=== PATIENT | male | born 1965 ===

== ENCOUNTER 2016-10-04 07:08 | Inpatient (IN) | payer OTHER ==
[2016-10-04] VITALS (15 sets, daily range): BP systolic 104–146; BP diastolic 55–88
[~2016-10-04] VITALS: Ht 170.2 cm; Wt 86.2 kg
[~2016-10-04 07:08] MED LIST: ceFAZolin sod 2 GM in D5W 110 ML IVPB ONE
--- NOTE | 2016-10-04 07:41 | Pre-Procedure Note/Attestation ---
Pre-Procedure Note/Attestation Complete Prior to Procedure Planned Procedure: not applicable Procedure Narrative: Artificial disc replacement of C67 Indications for Procedure Pre-Operative Diagnosis: C67 hnp Attestation I attest that I discussed the nature of the procedure; its benefits; risks and complications; and alternatives (and the risks and benefits of such alternatives ), prior to the procedure, with the patient (or the patient's legal financial foundations representative). I attest that, if there was a reasonable possibility of needing a blood transfusion, the patient (or the patient's legal financial foundations representative) was given the [facility] standardized written summary, pursuant to the Ilan Robin Blood Safety Act ([place] Health and Safety Code # 1645, as amended). I attest that I re-evaluated the patient just prior to the surgery and that there has been no change in the patient's H&P, except as documented below: MYRANDA HOLLOWAY October 04, 2016 07:41
--- NOTE | 2016-10-04 07:42 | Brief Operative Note ---
Immediate Post Operative Note Operative Note Chief Complaint: Intractable neck pain and radiculopathy Pre-op Diagnosis: C67 hnp Procedure: Artificial disc replacement of C67 Post-op Diagnosis: same as pre-op Findings: consistent w/pre-op dx studies Surgeon: Selma Audiovisual Tech: Syed Anesthesiologist: Boni Anesthesia: general Specimen: none Complications: none Condition: stable Estimated Blood Loss: none Implant(s) used?: Yes - Prodisc C sz 5 MYRANDA HOLLOWAY October 04, 2016 07:42
[2016-10-04] MEDS ORDERED: Norco 7.5mg/325mg tab ORAL PRN ×2 (07:45→10:30)
[2016-10-04] MEDS ORDERED: Metoclopramide 10mg/2ml Inj IVP PRN ×2 (07:45→10:30)
[2016-10-04] MEDS ORDERED: Milk of Magnesia 30ml Ud ORAL PRN (07:45)
[2016-10-04] MEDS ORDERED: HYDROmorphone 1mg/ml Carpuject IVP PRN (07:45)
[2016-10-04] MEDS ORDERED: HYDROmorphone 1mg/ml Carpuject SUBQ PRN (07:45)
[2016-10-04] MEDS ORDERED: Norco 5mg/325mg tab ORAL PRN ×2 (07:45→10:30)
[2016-10-04] MEDS ORDERED: Naloxone 0.4mg/ml Inj IVP PRN (07:45)
[2016-10-04] MEDS ORDERED: NORCO 5-325 TA1 EAC1 ORAL (08:20)
[2016-10-04] MEDS ORDERED: Vancomycin 1gm inj IVPB ONE (09:15)
[2016-10-04] MEDS ORDERED: Bupivacaine w/Epi 0.5% 30ml Vial INJ ONE (09:15)
[2016-10-04] MEDS ORDERED: Thrombin 5000 units TOPIC ONE (09:15)
[2016-10-04] MEDS ORDERED: Bacitracin 50000 Units Vial ONE (09:15)
[2016-10-04] MEDS ORDERED: Dexamethasone 4mg/ml vial ONE (09:30)
[2016-10-04] MEDS ORDERED: Lidocaine 1% MPF 10mg/ml 5ml ONE (09:30)
[2016-10-04] MEDS ORDERED: Neostigmine 1mg/ml 10ml Inj ONE (09:30)
[2016-10-04] MEDS ORDERED: Sterile Water Irrig 1000ml IRRIG ONE (09:30)
[2016-10-04] MEDS ORDERED: Glycopyrrolate 0.2mg/ml 1ml Vial ONE (09:30)
[2016-10-04] MEDS ORDERED: Nimbex 2mg/ml Inj 10ML IVP ONE (09:30)
[2016-10-04] MEDS ORDERED: Lidocaine 1% Plain 30 ml INJ ONE (09:30)
[2016-10-04] MEDS ORDERED: NS Irrig 1000ml ONE (09:30)
[2016-10-04] MEDS ORDERED: Midazolam 2mg/2ml Inj ONE (09:30)
[2016-10-04] MEDS ORDERED: LR 1000ml ONE (09:30)
[2016-10-04] MEDS ORDERED: fentaNYL 250mcg/5ml ONE (09:30)
--- NOTE | 2016-10-04 10:19 | Anethesia Preoperative Eval ---
Anesthesia Pre-op PMH/ROS General Date of Evaluation: October 04, 2016 Time of Evaluation: 09:23 Anesthesiologist: Sheryl ASA Score: ASA 2 Mallampati Score Class I : Soft palate, uvula, fauces, pillars visible Class II: Soft palate, uvula, fauces visible Class III: Soft palate, base of uvula visible Class IV: Only hard plate visible Mallampati Classification: Class II Surgeon: Selma Diagnosis: Neck Pain Surgical Procedure: ACDF C6-7 Anesthesia History: none Family History: no anesthesia problems Allergies: Coded Allergies: No Known Allergies (Unverified , 10/04/16) Medications: see eMAR Past Medical History Other: obesity - BMI 30 PSxH Narrative: Umbilical, Testicular Hernia Repair, Lumbar Spine SX Anesthesia Pre-op Phys. Exam Physician Exam Last Vital Signs Date Time Temp Pulse Resp B/P Pulse Ox O2 Delivery O2 Flow Rate FiO2 10/04/16 08:13 98.1 49 20 132/67 100 Room Air Constitutional: NAD Neurologic: CN 2-12 intact Cardiovascular: RRR Respiratory: CTA Gastrointestinal: S/NT/ND Airway Exam Mallampati Score: Class II MO: full ROM: limited Teeth: intact Anesthesia Pre-op A/P Risk Assessment & Plan Assessment: ASA 2 Status Change Before Surgery: No Pre-Antibiotics Dru Grams Ancef IV Given Within 1 Hr of Incision: Yes Time Given: 09:36 Juan Antonio Saucedo MD October 04, 2016 10:19
[2016-10-04] MEDS ORDERED: LR 1000ml 1,000 ML IVLG SCH (10:20)
--- NOTE | 2016-10-04 10:27 | Immediate Post-Op Evaluation ---
Immediate Post-Op Evalulation Immediate Post-Op Evalulation Procedure: ACDF C6-7 Date of Evaluation: October 04, 2016 Time of Evaluation: 11:43 IV Fluids: 900 LR Blood Products: 0 Estimated Blood Loss: 25 Urinary Output: 250 Blood Pressure Systolic: 146 Blood Pressure Diastolic: 88 Pulse Rate: 69 Respiratory Rate: 16 O2 Sat by Pulse Oximetry: 100 Temperature (Fahrenheit): 96.9 Pain Score (1-10): 3 Nausea: No Vomiting: No Complications 0 Patient Status: awake, reacts, patent, extubated, none Hydration Status: adequate Dru Grams Ancef IV Given Within 1 Hr of Incision: Yes Time Given: 09:36 Juan Antonio Saucedo MD October 04, 2016 10:27
--- NOTE | 2016-10-04 10:28 | 48 Hour Post Anesthesia Eval ---
Post Anesthesia Evaluation Procedure: ACDF C6-7 Date of Evaluation: October 04, 2016 Time of Evaluation: 13:53 Blood Pressure Systolic: 132 0: 78 Pulse Rate: 61 Respiratory Rate: 18 Temperature (Fahrenheit): 98.4 O2 Sat by Pulse Oximetry: 99 Airway: patent Nausea: No Vomiting: No Pain Intensity: 3 Hydration Status: adequate Cardiopulmonary Status: Stable Mental Status/LOC: patient returned to baseline Follow-up Care/Observations: 0 Post-Anesthesia Complications: 0 Follow-up care needed: N/A Juan Antonio Saucedo MD October 04, 2016 10:27
[2016-10-04] MEDS ORDERED: Ketorolac 60mg Inj IV PRN (10:30)
[2016-10-04] MEDS ORDERED: Atropine Inj 1mg/10ml Syr IV PRN (10:30)
[2016-10-04] MEDS ORDERED: Oxycodone/Acetaminophen 5-325 ORAL PRN (10:30)
[2016-10-04] MEDS ORDERED: DiphenhydrAMINE 50mg/ml Inj IVP PRN (10:30)
[2016-10-04] MEDS ORDERED: Midazolam 2mg/2ml Inj IVP PRN (10:30)
[2016-10-04] MEDS ORDERED: LORazepam Inj 2mg/ml 1ml IV PRN (10:30)
[2016-10-04] MEDS ORDERED: fentaNYL 100 mcg/2 mL IV PRN (10:30)
[2016-10-04] MEDS ORDERED: Meperidine 25mg/0.5ml Inj IV PRN (10:30)
[2016-10-04] MEDS ORDERED: Ketorolac 30mg Inj IV PRN (10:30)
[2016-10-04] MEDS ORDERED: Acetaminophen (Non formulary) 100 ML IV ONE (10:45)
[2016-10-04] MEDS ORDERED: Propofol 10mg/ml 100ml btl IV ONE (11:30)
[2016-10-04] MEDS: Hydromorphone 0.5mg/0.5ml inj IVP PRN ×2 (12:00→12:38)
--- NOTE | 2016-10-04 14:11 | Diagnostic Imaging Report ---
Indication: Neck Pain Findings: Fluoroscopic views of the cervical spine were obtained. Localization images followed by a discectomy and placement of a disc prosthetic at C6-7 noted. Impression: Intraoperative imaging
[2016-10-04] MEDS: Dexamethasone 4mg/ml vial IVP SCH ×2 (15:08→20:53)
[2016-10-04] MEDS: NS w/KCl 20mEq 1,000 ML IV SCH (16:03)
[2016-10-04] MEDS: Docusate 100mg cap ORAL SCH (17:03)
[2016-10-04] MEDS: Norco 7.5mg/325mg tab ORAL PRN (17:04)
[2016-10-04] MEDS: ceFAZolin sod 1 GM in D5W 55 ML IV SCH (17:04)
[2016-10-05] VITALS: BP 112/55
[2016-10-05] MEDS: NS w/KCl 20mEq 1,000 ML IV SCH ×2 (01:04→04:59)
[2016-10-05] MEDS: ceFAZolin sod 1 GM in D5W 55 ML IV SCH ×2 (01:04→10:56)
[2016-10-05] MEDS: Norco 7.5mg/325mg tab ORAL PRN ×2 (01:43→11:12)
[2016-10-05 04:00] VITALS: BP 117/43
[2016-10-05] MEDS: Dexamethasone 4mg/ml vial IVP SCH ×2 (04:59→10:56)
[2016-10-05 08:00] VITALS: BP 109/59
[2016-10-05] MEDS: Docusate 100mg cap ORAL SCH (10:56)
[2016-10-05 12:00] VITALS: BP 135/71
[2016-10-05] MEDS ORDERED: Tubing IV Secondary IV ONE (13:26)
--- NOTE | 2016-10-05 21:31 | Operative Note - Dictated ---
DATE OF OPERATION: 10/04/2016 SURGEON: Marcos Hahn MD, orthopedic spine surgeon. MAINTENANCE MILLWRIGHT: Rao Lynch M.D. PREOPERATIVE DIAGNOSES: 1. Intractable neck pain. 2. Radiculopathy. 3. Herniation, C6-C7. 4. Neural foraminal stenosis C6-C7. 5. Stenosis. POSTOPERATIVE DIAGNOSES: 1. Intractable neck pain. 2. Radiculopathy. 3. Herniation, C6-C7. 4. Neural foraminal stenosis C6-C7. 5. Stenosis PROCEDURE PERFORMED: 1. Anterior cervical discectomy and artificial disc replacement of C6-C7 using a ProDisc C size 5. 2. Use of intraoperative microscope. 3. Motor evoked potential monitoring. 4. Somatosensory evoked potential monitoring. 5. Supervision and interpretation of fluoroscopy. COMPLICATIONS: None. ANESTHESIA: General. ESTIMATED BLOOD LOSS: Less than 100 mL. INDICATIONS FOR SURGERY: This patient is a 50-year-old male, who has a history of diagnoses as listed above. As of result of this, the patient sustained intractable neck pain, radiculopathy, herniation C6-C7, neural foraminal stenosis C6-C7, and stenosis. We tried a course of conservative management but despite this course there was still a significant component of persistent, recalcitrant neck pain and arm pain. The MRI demonstrated significant neural foraminal compromise secondary to disc herniations at C6-C7. We had a long discussion with Sigifredo regarding the risks and benefits of surgery. Our discussion included but was not limited to nonoperative management, chiropractic management, another epidural steroid injection as well definitive management in the form of surgery. We recommended an anterior cervical discectomy and artificial disc replacement of C6-C7 using a Prodisc C size 5 height as final definitive management. We reviewed the risks and benefits of surgery with the patient. Our discussion included a comprehensive review of the clinical issues and the nature of the clinical decision. We reviewed the alternatives, including doing nothing. The patient elected to proceed accordingly with anterior cervical discectomy and artificial disc replacement of C6-C7 using a Prodisc C size 5 height. We had a long discussion regarding the risks, alternatives and benefits of surgery. Our description of the risks included a discussion in person as well as a signed consent which detailed all pertinent risks from the procedure itself. Briefly, our discussion included but was not limited to infection, bleeding, pseudarthrosis, spinal cord injury, neurovascular injury, dural tear, CSF leak, neuropathy, paralysis, permanent weakness/drop foot/drop arm, paresthesias, blindness, palsy and weakness. The patient understood there may be a need for a revision surgery or additional procedures. Approach-related complications including dysphonia, dysphagia, blindness, permanent vocal cord and neural injury, hematoma, swallowing and breathing difficulty. Medical complications were reviewed including liver, kidney, shock, cardiopulmonary failure, anesthesia complications including , swelling, damage to the musculature, larynx/voice injury or loss, esophagus/throat, trachea, blood vessels and muscles/muscular sprain and lungs/pneumothorax during this surgical procedure; injury to deeper structures may be temporary or permanent. After this review of risks, the patient understood these and elected to proceed. A written and verbal consent was given. We discussed the pros and cons of all the alternatives. We discussed the uncertainties associated with the decision. Afterwards I assessed the patient's understanding and explored their preferences. All questions were answered and no guarantees were given. Medical clearance was obtained prior to surgery. INTRAOPERATIVE FINDINGS: A broad based disc herniation which was found posterior to a tear/rent in the posterior longitudinal ligament at C6-C7 causing a considerable amount of neural foraminal stenosis with significant encroachment on the neural foramina and spinal cord. DESCRIPTION OF PROCEDURE: Under the benefit of general endotracheal anesthesia and with the assistance of the entire operative team, the patient was moved from the [facility] onto the operative table in the supine position. The head was secured and carefully positioned appropriately. Bilateral arms were secured with GelPads and foam and all bony prominences were padded. For the bilateral lower extremities SCD and RAYMOND hose were placed for DVT prophylaxis. A surgical timeout was called which corroborated our planned procedure of Anterior cervical discectomy and artificial disc replacement of C6-C7 using a Prodisc C size 5 height. Preoperative antibiotics were administered within 30 minutes of the incision for antibiotic prophylaxis. Using lateral fluoroscopic radiography, the operative levels were delineated. Next the wound was prepped and draped with Chlorhexidine and sterile drapes. An incision was based on lateral fluoroscopy and we centered our incision at the C6-C7 interspace and next using a standard [employer] anterior based approach the incision was taken down through the skin and subcutaneous tissues until the vertebral bodies and their corresponding disc spaces were visualized. A needle was placed into the interspace to confirm placement of the operative interspace and we performed the remainder of procedure under microscopic visualization. Next, using a bipolar and Bovie cautery to ensure meticulous hemostasis, the longus colli was mobilized bilaterally and retractors were placed deep to the longus colli bilaterally to address retraction. Next we turned our attention to the radical anterior discectomy. This was initially performed at C6-C7. First by using a 15 blade scalpel followed by narrow pituitaries and a Microsect 5-B curette was used to denude the endplate of all cartilaginous tissue. Next using a [employer] AM8 drillbit the partial vertebrectomy was performed in a [id number] and layer by layer fashion, and ultimately the posterior uncinate joints bilaterally and posterior osteophytic lips and margins causing central and lateral impingement were carefully denuded until visualization of the posterior longitudinal ligament was possible. An endplate preparation was performed in the exact same fashion using an intervertebral conveyor operator, sequential distraction was obtained throughout the disc space. We saw a tear/rent in the PLL and this was carefully mobilized and dissected using a Microsect 1-B curet until we visualized a broad-based disc herniation with compression of the spinal cord as well as neural foramina left more than right. This neural foraminal compression was carefully resected using a Kerrison-1 and Kerrison-2 rongeurs until complete decompression of the spinal cord was visualized and complete decompression of the neural foramina and nerve root therein as well as the axilla and lateral margin of the nerve root was visualized and subsequently completely decompressed. The family was notified at one hour intervals throughout the procedure to provide for consistent updates. We next turned our attention towards trialing our implant within the disc space. We initially tried size 5 and the Prodisc Cervical spacer fit well in regards to depth and width. This implant was opened and prepared. Next under direct visualization, I confirmed excellent fit in respect to the anterior and posterior vertebral bodies, the uncinate joints and in regards to toggle. Once satisfied with this placement on serial AP and lateral fluoroscopy I turned my attention towards cutting our sarah. These were cut in the bones using a reciprocating drill and afterwards all free fragments of bone were irrigated. Next FloSeal was placed into the interspace and the implant was inserted using fluoroscopic guidance. Next, the Synthes Prodisc C size 5 ADR was then carefully advanced and secured into the intervertebral space under direct visualization and with supervision of AP and lateral fluoroscopic views. The patient tolerated the procedure well. The patient was carefully extubated after the conclusion of surgery. We discussed the findings of the surgery with the family upon completion of the case. At this point the patient was transferred to the spine floor for further observation. Marcos Hahn M.D. DR: SALVADOR JOB#: [id number] CC:
--- NOTE | 2016-10-05 21:31 | Discharge Summary ---
DATE OF ADMISSION: 10/04/2016 DATE OF DISCHARGE: 10/05/2016 SURGEON: Marcos Hahn M.D. PROCEDURE PERFORMED DURING ADMISSION: Cervical C6-C7 artificial disk replacement. REASON FOR ADMISSION: Herniated nucleus pulposus. DISCHARGE PHYSICAL EXAM: 1. Patient was ambulating with and without the assistance of physical therapy. 2. Prior to discharge home incision was clean and dry with minimal swelling. 3. Follows commands. 4. Alert and oriented. 5. Yip discontinued, voiding. 6. Incentive spirometer at bedside. 7. IVF hep locked. MOTOR: Demonstrates expected postoperative bulk and tone. Moves biceps, triceps, and deltoid musculature on command. Moves hip flexors, quadriceps, tibialis anterior, EHL, gastrocsoleus musculature on command as well. TREATMENT RENDERED: 1. Daily nursing care. 2. Physical Therapy. 3. Occupational Therapy. 4. Intravenous medications. 5. Oral medications. 6. Daily postoperative examinations by Spine surgery team. CONDITION OF PATIENT ON DISCHARGE: The condition on discharge is stable for discharge to home. DISCHARGE INSTRUCTIONS: Our specific instructions relating to physical activity, medications diet and follow-up care are detailed in our standard operative folder and were given to this patient prior to surgery. We will however summarize these briefly as stated below. Regarding physical activity we would like the patient to limit their flexion, extension and rotation. We also require a limitation on their bending lifting and twisting. All medication has been called in prior to surgery to their pharmacy of choice. They can resume their regular diet once tolerated. We would like them to shower and limit soaking the wound in a tub/Jacuzzi/the ocean for a period of one month or until the incision is completely healed. We will have them follow up in our office in three weeks time for their regularly scheduled appointment. They understand to call our office tomorrow to schedule the time for their three week followup appointment. The patient will notify us should they experience any increase in the severity of pain, redness/swelling/ or drainage from their incision. Marcos Hahn M.D. DR: SALVADOR JOB#: [id number] CC:
== END 2016-10-05 13:27 | disposition home or self-care (01) | DRG 518 ==
LOC: SDSOVERFLO 07:08 → 3E 13:45
PROC: F01 Physical Rehabilitation and Diagnostic Audiology, Rehabilitation, Motor and/or Nerve Function Assessment (ICD-10-PCS; principal; 2016-10-04 11:30)
PROC: 0RR30JZ Replacement of Cervical Vertebral Disc with Synthetic Substitute, Open Approach (ICD-10-PCS; principal; 2016-10-04 11:30)
PROC: 0RB30ZZ Excision of Cervical Vertebral Disc, Open Approach (ICD-10-PCS; principal; 2016-10-04 11:30)
DX: M50.123 Cervical disc disorder at C6-C7 level with radiculopathy (principal); M48.02 Spinal stenosis, cervical region
CPT/HCPCS: 36415; 72040; 76000; 86850; 86900; 86901; 87081; J2250; J2405; J2710

== ENCOUNTER 2018-08-05 05:13 | Inpatient (IN) | payer OTHER ==
[~2018-08-05] VITALS: Ht 170.2 cm; Wt 86.2 kg
[2018-08-05] VITALS (11 sets, daily range): BP systolic 110–140; BP diastolic 64–84
[~2018-08-05 05:13] MED LIST changes: +NORCO 5-325 TA1 EAC1 ORAL; -ceFAZolin sod 2 GM in D5W 110 ML IVPB ONE
[2018-08-05] MEDS ORDERED: LR 1000ml 1,000 ML IVLG SCH (06:26)
--- NOTE | 2018-08-05 06:28 | Anethesia Preoperative Eval ---
Anesthesia Pre-op PMH/ROS General Date of Evaluation: Aug 05, 2018 Time of Evaluation: 07:01 Anesthesiologist: Sheryl ASA Score: ASA 2 Mallampati Score Class I : Soft palate, uvula, fauces, pillars visible Class II: Soft palate, uvula, fauces visible Class III: Soft palate, base of uvula visible Class IV: Only hard plate visible Mallampati Classification: Class II Surgeon: Selma Diagnosis: Back Pain Surgical Procedure: ALIF L4-5, PSF L4-5 Anesthesia History: none Family History: no anesthesia problems Allergies: Coded Allergies: No Known Allergies (Unverified , 10/04/16) Medications: see eMAR Patient NPO?: Yes NPO Date: Aug 04, 2018 NPO Time: 2358 Past Medical History Other: obesity - BMI 31 PSxH Narrative: Umbilical, Testicular Hernia Repair, Cervical SX Anesthesia Pre-op Phys. Exam Physician Exam Last Vital Signs Date Time Temp Pulse Resp B/P (MAP) Pulse Ox O2 Delivery O2 Flow Rate FiO2 08/05/18 06:15 Room Air 08/05/18 06:05 97.5 46 18 110/67 (81) 99 Constitutional: NAD Neurologic: CN 2-12 intact Cardiovascular: RRR Respiratory: CTA Gastrointestinal: S/NT/ND Airway Exam Mallampati Score: Class II MO: full ROM: limited Teeth: intact Anesthesia Pre-op A/P Risk Assessment & Plan Assessment: ASA 2 Plan: GA, SED, GlideScope Go Pre-Antibiotics Dru Grams Ancef IV Given Within 1 Hr of Incision: Yes Time Given: 07:16 Juan Antonio Saucedo MD Aug 05, 2018 06:28
[2018-08-05] MEDS ORDERED: Hydromorphone 0.5mg/0.5ml inj IVP PRN (06:30)
[2018-08-05] MEDS ORDERED: Metoclopramide 10mg/2ml Inj IVP PRN ×2 (06:30→07:15)
[2018-08-05] MEDS ORDERED: Labetalol 5mg/ml 20ml vial IV PRN (06:30)
[2018-08-05] MEDS ORDERED: Ketorolac 30mg Inj IV PRN ×2 (06:30)
[2018-08-05] MEDS ORDERED: oxyCODONE HCL/Acetaminophen 5/325mg ORAL PRN (06:30)
[2018-08-05] MEDS ORDERED: HYDROcodone/Acetamin 7.5/325 tab ORAL PRN ×2 (06:30→07:15)
[2018-08-05] MEDS ORDERED: Atropine Sulfate 0.4mg/ml inj IVP PRN (06:30)
[2018-08-05] MEDS ORDERED: Midazolam 2mg/2ml Inj IVP PRN (06:30)
[2018-08-05] MEDS ORDERED: LORazepam Inj 2mg/ml 1ml IV PRN (06:30)
[2018-08-05] MEDS ORDERED: Acetaminophen (Non formulary) 100 ML IV ONE (06:30)
[2018-08-05] MEDS ORDERED: DiphenhydrAMINE 50mg/ml Inj IVP PRN (06:30)
[2018-08-05] MEDS ORDERED: fentaNYL 100 mcg/2 mL IV PRN (06:30)
[2018-08-05] MEDS ORDERED: Meperidine 50mg/ml Inj(FOR RIGORS ONLY) IVP PRN (06:30)
[2018-08-05] MEDS ORDERED: HYDROcodone/Acetamin 5/325 tab ORAL PRN ×2 (06:30→07:15)
[2018-08-05] MEDS ORDERED: Zemuron 50mg/5ml Inj IV ONE (06:33)
[2018-08-05] MEDS ORDERED: Heparin 5000 units/ml inj ONE (06:37)
[2018-08-05] MEDS ORDERED: Gelfoam Size TOPIC ONE (06:38)
[2018-08-05] MEDS ORDERED: Thrombin 5000 units TOPIC ONE ×5 (06:38→10:56)
[2018-08-05] MEDS ORDERED: Ropivacaine 5mg/ml Vial 30ml INJ ONE (06:38)
[2018-08-05] MEDS ORDERED: Lidocaine 1% MPF 10mg/ml 5ml ONE (06:47)
[2018-08-05] MEDS ORDERED: Sodium Chloride 10ml vial INJ ONE (06:47)
[2018-08-05] MEDS ORDERED: Lidocaine 1% Plain 30 ml INJ ONE ×5 (06:47→14:49)
[2018-08-05] MEDS ORDERED: Dexamethasone 4mg/ml vial ONE (06:47)
[2018-08-05] MEDS ORDERED: fentaNYL 100 mcg/2 mL IV ONE ×5 (06:55→15:26)
[2018-08-05] MEDS ORDERED: NS Irrig 1000ml ONE (07:00)
[2018-08-05] MEDS ORDERED: LR 1000ml ONE (07:00)
[2018-08-05] MEDS ORDERED: Propofol 1,000mg/ 100ml btl IV ONE (07:00)
[2018-08-05] MEDS ORDERED: Sterile Water Irrig 1000ml IRRIG ONE (07:00)
[2018-08-05] MEDS ORDERED: ceFAZolin sod 2 GM in D5W 110 ML IVPB ONE (07:00)
[2018-08-05] MEDS ORDERED: NS Irrig 1000ml IRRIG ONE (07:06)
--- NOTE | 2018-08-05 07:06 | Immediate Post-Op Evaluation ---
Immediate Post-Op Evalulation Immediate Post-Op Evalulation Procedure: ALIF L4-5, PSF L4-5 Date of Evaluation: Aug 05, 2018 Time of Evaluation: 13:13 IV Fluids: 1100 LR Blood Products: 0 Estimated Blood Loss: 250 Urinary Output: 200 Blood Pressure Systolic: 140 Blood Pressure Diastolic: 84 Pulse Rate: 71 Respiratory Rate: 16 O2 Sat by Pulse Oximetry: 100 Temperature (Fahrenheit): 97.5 Pain Score (1-10): 2 Nausea: No Vomiting: No Complications 0 Patient Status: awake, reacts, patent, extubated, none Hydration Status: adequate Dru Grams Ancef IV Given Within 1 Hr of Incision: Yes Time Given: 07:16 Juan Antonio Saucedo MD Aug 05, 2018 07:06
--- NOTE | 2018-08-05 07:11 | Pre-Procedure Note/Attestation ---
Pre-Procedure Note/Attestation Complete Prior to Procedure Planned Procedure: not applicable Procedure Narrative: Stage 1 Anterior Lumbar Fusion of L5S1 with bone morphogenetic protein and allograft bone Stage 2 Posterior hanley flores/lawson laminectomy pedicle screw fixation and posterolateral fusion of L45 Attestation I attest that I discussed the nature of the procedure; its benefits; risks and complications; and alternatives (and the risks and benefits of such alternatives ), prior to the procedure, with the patient (or the patient's legal customer field representative). I attest that, if there was a reasonable possibility of needing a blood transfusion, the patient (or the patient's legal customer field representative) was given the [place] [facility] standardized written summary, pursuant to the Ilan Converse Blood Safety Act ([place] Health and Safety Code # 1645, as amended). I attest that I re-evaluated the patient just prior to the surgery and that there has been no change in the patient's H&P, except as documented below: Marcos Hahn MD Aug 05, 2018 07:11
--- NOTE | 2018-08-05 07:13 | Brief Operative Note ---
Immediate Post Operative Note Operative Note Chief Complaint: Back pain and radiculopathy Pre-op Diagnosis: L45 recurrent hnp following trauma, prior lumbar surgery 2008 Dr Perez Procedure: Stage 1 Anterior Lumbar Fusion of L45 with bone morphogenetic protein and allograft bone Stage 2 Posterior hanley flores/lawson laminectomy pedicle screw fixation and posterolateral fusion of L45 Post-op Diagnosis: same as pre-op Findings: consistent w/pre-op dx studies Surgeon: Selma Debrander: Cuong Anesthesia: general Specimen: none Complications: none Condition: stable Fluids: IVF Estimated Blood Loss: minimal Drains: none Implant(s) used?: Yes - Nuvasive Brigade sz 14, screws 25mmx4....synthes pedicle screws 4x 45 Marcos Hahn MD Aug 05, 2018 07:13
[2018-08-05] MEDS ORDERED: Morphine Sulfate 2mg/ml Inj(IV/IM USE ONLY) IV PRN (07:15)
[2018-08-05] MEDS ORDERED: Milk of Magnesia 30ml Ud ORAL PRN (07:15)
[2018-08-05] MEDS ORDERED: Chloraseptic Spray 20mL Bottle ORAL PRN (07:15)
[2018-08-05] MEDS ORDERED: Bacitracin 50000 Units Vial ONE (07:15)
[2018-08-05] MEDS ORDERED: Naloxone 0.4mg/ml Inj IVP PRN (07:15)
[2018-08-05] MEDS ORDERED: Morphine Sulfate 4mg/ml Inj (IV USE ONLY) IV PRN ×2 (07:15)
[2018-08-05] MEDS ORDERED: HYDROmorphone 1mg/ml Carpuject IVP PRN (07:15)
[2018-08-05] MEDS ORDERED: Glycopyrrolate 0.2mg/ml 1ml Vial ONE ×5 (07:28→15:28)
[2018-08-05] MEDS ORDERED: Neosporin Oint Ud Pkt TOPIC ONE (07:57)
[2018-08-05] MEDS ORDERED: Bacitracin Oint 15gm Tube TOPIC ONE (07:57)
[2018-08-05] MEDS ORDERED: Vancomycin 1gm vial IVPB ONE ×2 (09:37→12:19)
--- NOTE | 2018-08-05 09:56 | Pre-Procedure Note/Attestation ---
Pre-Procedure Note/Attestation Complete Prior to Procedure Planned Procedure: not applicable Procedure Narrative: Stage 1 Anterior Lumbar Fusion of L45 with bone morphogenetic protein and allograft bone Stage 2 Posterior hanley flores/lawson laminectomy pedicle screw fixation and posterolateral fusion of L45 Indications for Procedure Pre-Operative Diagnosis: L45 recurrent hnp following trauma, prior lumbar surgery 2008 Dr Perez Attestation I attest that I discussed the nature of the procedure; its benefits; risks and complications; and alternatives (and the risks and benefits of such alternatives ), prior to the procedure, with the patient (or the patient's legal fraud representative). I attest that, if there was a reasonable possibility of needing a blood transfusion, the patient (or the patient's legal fraud representative) was given the [place] [facility] standardized written summary, pursuant to the Ilan Robin Blood Safety Act ([place] Health and Safety Code # 1645, as amended). I attest that I re-evaluated the patient just prior to the surgery and that there has been no change in the patient's H&P, except as documented below: Marcos Hahn MD Aug 05, 2018 09:56
[2018-08-05] MEDS ORDERED: Neostigmine 1mg/ml 10ml Inj ONE (11:28)
--- NOTE | 2018-08-05 14:15 | NUR ---
NURSE NOTES:RECEIVED PATIENT FR.PACU BY KEO S/P ALIF/PLIF L4-5 WITH ALLOGRAFT,A/OX4,MOVING ALL EXTREMITIES, NO C/O TINGLING/NUMBNESS,PAIN LEVEL 3/10(TOLERABLE)WITH O2 AT 2LITERS N/C,IV SITE PATENT,MORGAN CATH DRAINING WELL,BACK INCISION WITH D/B INTACT,ICE PACK ON,ABDOMINAL DRSNG REINFORCED BY PACU NURSE(RITESH ALLISON )WITH 4/4/TEGADERM CLEAN/DRY/INTACT.PLAN OF CARE DISCUSSED.FAMILY AT BEDSIDE .
[2018-08-05] MEDS: NS w/KCl 20mEq 1,000 ML IV SCH (16:15)
[2018-08-05] MEDS: ceFAZolin sod 1 GM in D5W 55 ML IV SCH ×2 (16:15→23:42)
--- NOTE | 2018-08-05 16:23 | Diagnostic Imaging Report ---
INDICATION: Pain, intraoperative TECHNIQUE: Intraoperative imaging Fluoroscopy time: 95.7 seconds Total dose: 0.13169 mGym2 Total number of images: 5 COMPARISON: None FINDINGS: Intraoperative images demonstrate surgical tool projected at the anterior aspect of the L4-5 disc. Subsequent images document anterior surgical fusion at L4-5 with placement of a disc spacer, subsequently placement of posterior fusion rods IMPRESSION: Intraoperative imaging, as described
[2018-08-05] MEDS: Docusate 100mg cap ORAL SCH (16:53)
--- NOTE | 2018-08-05 17:30 | General Progress Note ---
Assessment/Plan Assessment/Plan L45 recurrent hnp following trauma, prior lumbar surgery 2008 Dr Perez Stage 1 Anterior Lumbar Fusion of L45 with bone morphogenetic protein and allograft bone Stage 2 Posterior hanley flores/lawson laminectomy pedicle screw fixation and posterolateral fusion of L45 lumbar disc disease PLAN 1. incentive spirometry 2. SCD 3. PT evaluation and therapy 4. Hydration 5. Pain management 6. discharge once stable with outpatient follow up Subjective Allergies: Coded Allergies: No Known Allergies (Unverified , 10/04/16) Subjective post op care noted Objective Last 24 Hour Vital Signs Date Time Temp Pulse Resp B/P (MAP) Pulse Ox O2 Delivery O2 Flow Rate FiO2 08/05/18 16:00 97.5 60 18 128/70 (89) 98 08/05/18 15:25 97.9 63 18 115/64 (81) 98 08/05/18 14:15 Nasal Cannula 2.0 08/05/18 14:15 97.8 08/05/18 14:06 97.8 66 17 120/64 100 Nasal Cannula 3 08/05/18 14:00 70 18 121/65 100 Nasal Cannula 3 08/05/18 13:46 76 16 119/74 100 Nasal Cannula 3 08/05/18 13:30 64 14 127/73 100 Nasal Cannula 3 08/05/18 13:20 66 13 132/77 100 Simple Mask 6 08/05/18 13:13 73 17 123/72 99 Simple Mask 6 08/05/18 13:08 80 20 133/83 99 Simple Mask 6 08/05/18 13:03 97.5 72 12 140/84 99 Simple Mask 6 08/05/18 13:02 71 16 100 08/05/18 06:15 Room Air 08/05/18 06:05 97.5 46 18 110/67 (81) 99 Intake and Output 08/04/18 08/05/18 19:00 07:00 # Voids 1 Height (Feet): 5 Height (Inches): 7.00 Weight (Pounds): 190 Objective WDWN NAD clear breath sounds bilaterally without rhonchi or wheeze [id number] without MRG NABS nontender no HSM no CCE nonfocal Nolberto Gaffney MD Aug 05, 2018 17:30
[2018-08-05] MEDS: Dexamethasone 4mg/ml vial IVP SCH (17:40)
--- NOTE | 2018-08-05 18:00 | Consultation ---
DATE OF CONSULTATION: 08/05/2018 VASCULAR SURGERY CONSULTATION CONSULTING PHYSICIAN: Caleb Hutchins M.D. HISTORY OF PRESENT ILLNESS: The patient is a 52-year-old male who was admitted to undergo anterior lumbar interbody fusion of L4-L5 as determined by his spine surgeon, Dr. Marcos Hahn. Prior to today, the patient would typically have received my separate informed consent form and other documents mailed to his home the patient does not recall receiving such a packet. However, as my usual protocol, the patient was seen in the preoperative holding area where he was given a separate informed consent form, which introduced me and explained my role in the approach for the anterior lumbar spine surgery. It was also translated in Khmer as well. It also outlined the possible risks and complications including, but not limited to hemorrhage, need for blood transfusions, retrograde ejaculation, wound infection, bowel or ureter injury, arterial or venous injury or thrombosis, and the remote chance of , etc. The patient read the form and all questions were answered. He was shown the site of the incision. He had palpable bilateral posterior tibial pulses. He was 5 feet 7 inches tall, weighing approximately 190 pounds giving him a BMI of 30. His hematocrit was 44 with a platelet count of 225,000. His INR was 1.09 with a PTT of 25 seconds. That consent was signed with a nurse witness and signature as well and then placed into the chart. He fully understood and wished to proceed. There were no contraindications and we would proceed with the proposed operation. Caleb Hutchins M.D. DR: PATRICE JOB#: [id number] CC:
--- NOTE | 2018-08-05 18:30 | Operative Note - Dictated ---
DATE OF OPERATION: 08/05/2018 OPERATIONS: 1. Muscle sparing anterior abdominal retroperitoneal approach for anterior lumbar interbody fusion. 2. Mobilization of the left iliac artery and aorta. 3. Mobilization of the left iliac vein and ligation of iliolumbar vein. 4. Plastic closure repair of abdominal wound. CO-SURGEONS: 1. Caleb Hutchins M.D. 2. Marcos Hahn M.D. ANESTHESIA: General. PREOPERATIVE DIAGNOSIS: Herniated disc, L4-L5. POSTOPERATIVE DIAGNOSIS: Herniated disc, L4-L5. PROCEDURE IN DETAIL: Prior to surgery, the patient would typically have received my separate informed consent form, but the patient does not recall receiving such a packet with other documents. As my usual protocol, the patient was seen in the preoperative holding area where he was given the separate informed consent form, which was translated in Filipino as well. This form introduces me and explains my role in the approach for the anterior lumbar spine surgery. It also outlines the possible risks and complications, including, but not limited to hemorrhage, need for blood transfusion, wound infection, retrograde ejaculation, bowel or ureter injury, arterial or venous injury or thrombosis, and the remote chance of , etc. The patient read the form and all questions were answered. He was shown the site of the incision. He had palpable bilateral posterior tibial pulses. That consent was signed with a nurse witnessed and signature as well and then placed into the chart. He fully understood and wished to proceed. A preoperative vascular surgery consultation report was dictated. The patient was taken into the operating room and placed in the supine position. Using an endotracheal tube, he was placed under general anesthesia without difficulty. His abdomen was prepped and draped in the usual sterile manner. An appropriate time-out was obtained. A transverse incision was made in the left abdomen at the level of the umbilicus and carried down through the subcutaneous tissues down to the rectus fascia. Hemostasis was achieved using electrocautery. The rectus fascia was incised transversely and elevated off the anterior surface of the muscle for a distance of approximately 4 cm both caudad and cephalad. This would allow for retraction of the rectus muscle laterally later in the case noted to obtain direct anterior-posterior approach to the anterior surface of the spine. The inferior epigastric vessels were identified and preserved. The posterior rectus fascia was then incised and carefully from the peritoneum. Laterally, the retroperitoneal space was entered down to the left psoas muscle. The left ureter was identified and protected as it was mobilized with the peritoneum more medially until the left iliac artery was identified. Deep self-retaining retractors such as the [place] and [place] were utilized to hold the abdominal wall and peritoneal contents in place while further dissection was carried out. The left iliac artery is now mobilized for its entire length up to its junction with the aorta. Deeper dissection revealed the common iliac vein, which was mobilized down to its iliolumbar branch. This branch was ligated using #0 silk with hemoclips placed and transected. Any other venous tributaries in the area were controlled with hemoclips and transected. Segmental vessels lying along the anterior surface of the spine were taken between hemoclips and transected. This would allow for mobilization of the iliac vessels both anteriorly and to the right to allow proper visualization of the anterior surface of the spine. Continued blunt dissection was carried out to preserve the sympathetic chains laterally and then utilized to expose the anterior surface of the multiple vertebral bodies and intervening disc space. Several retractor blades were now placed in all quadrants with the rectus muscle now retracted laterally, which allowed exposure and direct anterior-posterior approach to the anterior surface of the spine. A needle was inserted into the appropriate disc space and an x-ray was taken to verify the exposure. The spine surgeon then proceeded to perform diskectomy and fusion, which be dictated in a separate report by the spine surgeon, Dr. Hahn. Antibiotic irrigation had been carried out. Vancomycin powder was left in the wound. The retractor blades were removed. The integrity of the iliac vessels were then checked to make sure that there was no tear or thrombosis of the vein and that there was adequate flow through the artery or no evidence of spasm or thrombosis. A further check for hemostasis was made and the integrity of the ureter was verified. The peritoneum was allowed to return to its anatomical location and then the posterior sheath approximated using continuous running suture of 2-0 Vicryl. The anterior rectus sheath was approximated using #1 Vicryl. The subcutaneous tissues were irrigated using dilute Betadine solution as well as antibiotic solution. Hemostasis noted to be achieved. Some vancomycin powder was left in the wound. Plastic closure repair of the abdominal wound was continued using 2-0 Vicryl followed by skin approximation using continuous subcuticular suture of 3-0 Monocryl. Steri-Strips were applied. Dry sterile gauze OpSite dressings were applied. The sponge, pad, needle, and instrument counts reported as correct. Estimated blood loss was less than 50 mL. There were no complications during this part of the procedure. At completion of this part of the procedure, the patient had maintenance of palpable bilateral posterior tibial pulses and the pulse oximeter registered 100% on the left foot. The patient will remain in the operating room undergo posterior instrumentation by the spine surgeon. Caleb Hutchins M.D. DR: ANTOINE JOB#: [id number] CC:
--- NOTE | 2018-08-05 19:18 | NUR ---
NURSE NOTES: Report taken from KEEGAN Moe. Patient awake and in bed, A&Ox4, family at bedside. Surgical sites post/ant c/d/i, continue to monitor. No further skin issues. IV site c/d/i and patent, running NS + KCl @ 100ml/hr. O2 at bedside, not currently using, but understands how to use if necessary. Tolerated liquid diet well, advance to regular. Antibiotics to be given tonight. Bed in lowest position, call light within reach.
--- NOTE | 2018-08-05 19:18 | NUR ---
HAND-OFF: Report given to LOGAN ALLISON.PATIENT STABLE.
--- NOTE | 2018-08-05 19:20 | NUR ---
NURSE NOTES: Report taken from KEEGAN Moe. Patient awake and in bed, A&Ox4, family at bed side. Abdominal dressing, reinforced prior to arrival, is c/d/i. Abdomen is slightly distended, continue to monitor. Posterior incision covered with dermabone, intact. IV site c/d/i and patent, running cycle of antibiotics. Yip patent and flowing yellow urine. Bed in lowest position, call light within reach.
[2018-08-06] MEDS: Dexamethasone 4mg/ml vial IVP SCH ×3 (00:37→12:36)
[2018-08-06] MEDS: NS w/KCl 20mEq 1,000 ML IV SCH ×2 (00:38→11:00)
--- NOTE | 2018-08-06 01:30 | Operative Note - Dictated ---
DATE OF OPERATION: 08/05/2018 Stage 1 of 2. SURGEON: Marcos Hahn M.D., Orthopaedic Spine Surgeon. EXPOSURE SURGEON: Caleb Hutchins M.D. ANESTHESIA: General endotracheal anesthesia. PREOPERATIVE DIAGNOSES: 1. Intractable back pain. 2. Intractable leg pain. 3. Worsening radiculopathy. 4. Weakness. 5. Herniated nucleus pulposus, L4-L5 herniation. 6. Neural foraminal stenosis, L4-L5 herniation. POSTOPERATIVE DIAGNOSES: 1. Intractable back pain. 2. Intractable leg pain. 3. Worsening radiculopathy. 4. Weakness. 5. Herniated nucleus pulposus, L4-L5 herniation. 6. Neural foraminal stenosis, L4-L5 herniation. PROCEDURES PERFORMED: 1. Radical anterior lumbar intervertebral L4-L5 discectomy. 2. Anterior lumbar interbody fusion using NuVasive Brigade PEEK cage size #14 mm 8 degrees, and medium BMP with 5 mL of allograft Freestone bone. 3. Anterior lumbar plating and fixation at L4-L5 using #4 screws of 25 mm length. 4. Anterior retroperitoneal exposure. 5. Supervision and interpretation of intraoperative fluoroscopy. 6. Supervision and interpretation of somatosensory-evoked potential and free-running EMG monitoring. COMPLICATIONS: None. INDICATIONS FOR THE PROCEDURE: The patient is a 52-year-old male who presents for intractable back pain and radiculopathy which is well documented in our clinical chart and records. We had a long discussion with Sigifredo regarding definitive surgical treatment options. We had a long discussion with the patient regarding the risks, alternatives, and benefits of procedure. Our description of the risks included a discussion in person as well as a signed consent which detailed all pertinent risks and the procedure itself. Briefly, our discussion included but was not limited to infection, bleeding, pseudarthrosis, spinal cord injury, neurovascular injury, dural tear, CSF leak, neuropathy, paralysis, permanent weakness/drop foot, paresthesias, blindness, palsy, and weakness. The patient understood there may be a need for revision surgery or additional procedures. Approach-related complications including dysphonia, dysphagia, blindness, permanent vocal cord and neural injury, hematoma, swallowing and breathing difficulty; medical complications including liver, kidney, shock, and cardiopulmonary failure; anesthesia complications including , swelling, damage to the musculature, larynx , esophagus, trachea, blood vessels and muscles, and lungs during this surgical procedure. Injury to deeper structures may be temporary or permanent. The patient understood these and elected to proceed. A written and verbal consent was given. We discussed the pros and cons of all the alternatives. We discussed the uncertainties associated with the decision. Afterwards, I assessed the patients understanding and explored their preferences. All questions were answered and no guarantees were given. Medical clearance was obtained prior to surgery. OPERATIVE FINDINGS: A broad-based disc herniation at L4-L5 was encountered, which encroached on the thecal sac and neural foraminal elements therein. This L4-L5 disc was acute in nature and not calcified. It was mobile and free-floating and resected easily. There was also neural foraminal stenosis at L4-L5. DESCRIPTION OF PROCEDURE: Under the benefit of general endotracheal anesthesia and with the assistance of the entire operative team, the patient was moved from the [place] onto the operative table in the supine position on a radiolucent frame. The head was secured and positioned appropriately. Bilateral arms were secured with Gel Pads and foam and all bony prominences were padded. The bilateral lower extremity SCD and RAYMOND hose were placed for DVT prophylaxis. A surgical timeout was called which corroborated our planned procedure. Preoperative antibiotics were administered within 30 minutes of the incision for prophylaxis. Using lateral radiography, the operative levels were delineated. An incision was marked based on our interpretation of lateral radiography and afterwards the body was prepped and draped in the usual sterile manner. The family was notified that we were ready to commence surgery and were called in the waiting room hourly for updates. An incision was based on our lateral fluoroscopic image to center the incision at the L4-L5 interspace. The wound was prepped and draped in the usual sterile fashion. Using a scalpel, a standard retroperitoneal exposure was performed by our vascular surgeon, Dr. Caleb Hutchins and this is delineated in a separate operative note. After appropriate exposure at the L4-L5 disc space, we next turned our attention towards our radical discectomy. This was performed in standard fashion first beginning with a gentle mobilization of all superficial soft tissue overlying the disc space with Kittners. After this was performed, we marked our midline and confirmed our disc space on AP and lateral fluoroscopy. Next, using a 10 blade long-handled scalpel, the disc was resected from the endplates in a box discectomy technique. Next using Serrano elevators, the disc was mobilized off each endplate. After this, using large Leksell rongeurs, the entire disc was removed from the intervertebral space. All residual disc and cartilaginous endplates were resected using a combination of small and medium curettage, pituitaries, size 4 and size 6 Kerrison rongeurs. Next, the endplates were distracted in a parallel fashion using the Sabino video technician and a 7.5 Thandle. At this point, the PLL was resected using a small curette and a Kerrison 4 rongeur. Next, the endplates were resected down to bleeding subchondral bone using a ring and box curette. For any residual bleeding which we encountered at this point, this was maintained and controlled with a combination of FloSeal, Gelfoam, and bipolar cautery. Afterwards, Tisseel was used to seal the discectomy site dorsally. Next, I then trialed the interspace for height, width, and depth. This was confirmed on fluoroscopy and once satisfied with our fit, we loaded and inserted a NuVasive Brigade PEEK cage size #14 mm 8 degrees with bone morphogenetic protein and with allograft Yamilet bone under AP and lateral fluoroscopy. AP and lateral fluoroscopy confirmed excellent placement at the L4-L5 interspace. Afterwards, we turned our attention towards plating from the Nuvasive Brigade Interlock system. This anterior lumbar plating and fixation at L4-L5 using #4 screws of 25 mm length. Final radiographs confirmed appropriate placement of all hardware, screws, and our PEEK cage along with a buddhist of the lumbar lordosis. Afterwards, Tisseel was used to seal the discectomy site ventrally. FloSeal and Zosyn antibiotics were placed directly on the anterior fusion site. The wounds were copiously irrigated with antibiotic-impregnated saline. Afterwards, FloSeal was placed to address residual bleeding. Powdered antibiotics were directly poured into the wound to provide for direct antibiosis. Next, I turned my attention to closure. Fascial closure was performed with 1-0 Vicryl suture. Subcutaneous tissues were reapproximated with 2-0 Vicryl. The superficial subcutaneous skin was closed with a running Monocryl and Dermabond. Dressings consisted of Tegaderm and 4 x 4 gauze. The patient tolerated the procedure well and after discussion with our vascular surgeon and our anesthesiologist, we made the determination to proceed with stage 2 of 2 our posterior-based approach. The details of stage 1 of the surgery were related to the patients family/representatives upon the conclusion of the procedure in the family waiting room. Stage 2 of 2. DATE OF OPERATION: 08/05/2018 SURGEON: Marcos Hahn M.D., Orthopaedic Spine Surgeon. CULINARY ARTIST SURGEON: Caleb Hutchins M.D. ANESTHESIA: General endotracheal anesthesia. PREOPERATIVE DIAGNOSES: 1. Intractable back pain. 2. Intractable leg pain. 3. Worsening radiculopathy. 4. Weakness. 5. Herniated nucleus pulposus, L4-L5 herniation. 6. Neural foraminal stenosis, L4-L5. POSTOPERATIVE DIAGNOSES: 1. Intractable back pain. 2. Intractable leg pain. 3. Worsening radiculopathy. 4. Weakness. 5. Herniated nucleus pulposus, L4-L5 herniation. 6. Neural foraminal stenosis, L4-L5. PROCEDURES PERFORMED: 1. Left-sided Flores laminectomy/Owens-Garcia osteotomy, and complete facetectomy at L4-L5. 2. L4-L5 posterolateral fusion using allograft bone, local autograft, and residual bone morphogenetic protein. 3. Percutaneous pedicle screw fixation at L4-L5 using Synthes pedicle screws of size 6 x 45 mm. 4. Confirmation of pedicle screws placement using neural monitoring. 5. Use of intraoperative microscope. 6. Supervision and interpretation of intraoperative fluoroscopy. 7. Supervision and interpretation of somatosensory-evoked potential and free-running EMG monitoring. COMPLICATIONS: None. INDICATIONS FOR THE PROCEDURE: The patient is a 52-year-old male who presents for stage 2 in regard to their intractable back pain and radiculopathy. This operative note details the second stage of our surgery. Prior to surgery, we had a long discussion with Sigifredo regarding definitive surgical treatment options. We had a long discussion with the patient regarding the risks, alternatives, and benefits of procedure. Our description of the risks included a discussion in person as well as a signed consent which detailed all pertinent risks and the procedure itself. Briefly, our discussion included but was not limited to infection, bleeding, pseudarthrosis, spinal cord injury, neurovascular injury, dural tear, CSF leak, neuropathy, paralysis, permanent weakness/drop foot, paresthesias, blindness, palsy, and weakness. The patient understood there may be a need for revision surgery or additional procedures. Approach-related complications including dysphonia, dysphagia, blindness, permanent vocal cord and neural injury, hematoma, swallowing and breathing difficulty; medical complications including liver, kidney, shock, and cardiopulmonary failure; anesthesia complications including , swelling, damage to the musculature, larynx, esophagus, trachea, blood vessels and muscles, and lungs during this surgical procedure. Injury to deeper structures may be temporary or permanent. The patient understood these and elected to proceed. A written and verbal consent was given. We discussed the pros and cons of all the alternatives. We discussed the uncertainties associated with the decision. Afterwards, I assessed the patients understanding and explored their preferences. All questions were answered and no guarantees were given. This now delineates the second stage of the procedure. OPERATIVE FINDINGS: A significant amount of neural foraminal encroachment along the thecal sac and neural foraminal elements therein. This neural foraminal stenosis at L4-L5 was more than appreciated on the MRI. DESCRIPTION OF PROCEDURE: Under the benefit of general endotracheal anesthesia and with the assistance of the entire operative team, the patient was moved from the radiolucent operative table in the prone position onto a Alexys frame. The head was secured and positioned appropriately. Bilateral arms were secured with Gel Pads and foam and all bony prominences were padded. The bilateral lower extremity SCD and RAYMOND hose were placed for DVT prophylaxis. A surgical timeout was called which corroborated our planned procedure. Preoperative antibiotics were administered within 30 minutes of the incision for prophylaxis. Using lateral radiography, the operative levels were delineated. An incision was marked based on our interpretation of anterior, posterior, and lateral radiography and afterwards the body was prepped and draped in the usual sterile manner. The family was notified that we were ready to commence surgery and were called in the waiting room hourly for updates. An incision was based on our anterior, posterior, and lateral fluoroscopic image to center the incision at the L4-L5 interspace. The wound was prepped and draped in the usual sterile fashion. Using a scalpel, a midline incision was made and the subcutaneous tissue was mobilized so that within the fascia, two Jorge-based incisions were made, one incision on the left side focusing on his pedicle at L4-L5 through a percutaneous stab wound approach. All pedicles were cannulated in the exact same fashion for each level. This was performed in the following manner. The second incision was made slightly off midline and geared towards his L4-L5 interspace approached. Using Jamshidi needles under direct AP and lateral fluoroscopic visualization, I approached the L4-L5 pedicles with Jamshidi needles making sure to leave clearance along the medial pedicle boundary/wall, and next we advanced our bilateral pedicle screw entry points under AP and lateral fluoroscopy at both our pedicles bilaterally. Next, percutaneous screws were loaded on the right-hand side and on the contralateral side, left. Screws were inserted in percutaneous fashion and afterwards these screws were stimulated. Next, a mathew was lordosed and placed percutaneously through the incision. Next, we turned our attention to our Owens-Garcia type osteotomy, facetectomy, and decompression. This was performed at each level in the exact same fashion. Based on AP and lateral fluoroscopy, we centered this incision over the facet joints at L4-L5 of the contralateral side. This was taken down through the skin and subcutaneous tissues until the overlying pars facet joints of L4-L5 were visualized under microscopic visualization. There was severe pressure on this neural foramina as palpated with the [place] dental and a Jean-Baptiste ball probe. The pars was then visualized on the contralateral side and this was carefully resected along with the lamina and superior articular process using a Digital Lumens AM8 drill bit. This was completely resected using a Owens-Garcia type osteotomy and medial laminar removal and facetectomy. There was a significant amount of bleeding which we encountered at this point and this was maintained and controlled with a combination of FloSeal, Gelfoam, and bipolar cautery. After complete resection of the facet joints, we noticed the lateral thecal sac margin and the neural elements. Next, I turned my attention to the stimulation of pedicle screws. All pedicle screws were stimulated with somatosensory-evoked potentials ranging over 20 milliampere with no response. Afterwards percutaneous rods from the Synthes pedicle screw system were inserted and placed percutaneously and locking caps were placed. Final radiographs confirmed appropriate placement of all hardware, screws, and our PEEK cage along with a buddhist of the lumbar lordosis. The wounds were copiously irrigated with antibiotic-impregnated saline. Afterwards, FloSeal was placed to address residual bleeding. Powdered antibiotics were directly poured into the wound to provide for direct antibiosis. Next, I turned my attention to closure. Fascial closure was performed with 1-0 Vicryl suture. Subcutaneous tissues were reapproximated with 2-0 Vicryl. The superficial subcutaneous skin was closed with a running Monocryl and Dermabond. Dressings consisted of Tegaderm and 4 x 4 gauze. The patient tolerated the procedure well and will now be admitted to the spine floor for further observation. The details of the entire surgery were related to the patients family/representatives upon the conclusion of the procedure in the family waiting room. TOTAL ESTIMATED BLOOD LOSS: 200 mL. Marcos Hahn M.D. DR: Susu JOB#: [id number] CC:
[2018-08-06] MEDS: ceFAZolin sod 1 GM in D5W 55 ML IV SCH (06:59)
--- NOTE | 2018-08-06 07:48 | NUR ---
CASE MANAGEMENT:REVIEW 52 YR OLD MALE HERE FOR ELECTIVE SURGERY SI: BACK PAIN AND RADICULOPATHY 97.5 46 18 110/67 99% ON RA IS: TO SURGERY: LUMBAR FUSION AND LAMINECTOMY : TO MED/SURG 3EAST POST OP INTERQUAL CRITERIA MET 08/06/18 SI: POD #1 97.5 60 18 128/70 98% ON 2L/NC IS: IV DECADRON Q6HRS IVF @ 100/HR NORCO PO Q3HRS PRN : MED/SURG STATUS 3 EAST PLAN: ADVANCE DIET TOLERATED
--- NOTE | 2018-08-06 07:57 | NUR ---
HAND-OFF: Report given to KEEGAN Lee. Patient awake and stable.
--- NOTE | 2018-08-06 08:00 | NUR ---
NURSE NOTES: Received report Familia ALLISON, a/a/ox4 laying in bed with no signs of distress or other issues at this time. IV on the Left GALLO gauge#18 NS +20mEq@100ml/hr. surgical dressing dry and intact. Yip cath in place draining, night total out put:2,500ml. pt is passing flatus. pt is in a regular diet and he is able to tolerated with no signs of n/v. plan to walk with PT and d/c Yip afterwards. possible d/c home today. call light within reach, bed in lowest position, side rales up x2. I will f/u as needed.
--- NOTE | 2018-08-06 08:18 | General Progress Note ---
Assessment/Plan Assessment/Plan L45 recurrent hnp following trauma, prior lumbar surgery 2008 Dr Perez Stage 1 Anterior Lumbar Fusion of L45 with bone morphogenetic protein and allograft bone Stage 2 Posterior hanley flores/lawson laminectomy pedicle screw fixation and posterolateral fusion of L45 lumbar disc disease PLAN 1. incentive spirometry 2. SCD 3. PT evaluation and therapy 4. Hydration 5. Pain management 6. discharge home per surgery Subjective Allergies: Coded Allergies: No Known Allergies (Unverified , 10/04/16) Subjective post op care noted Objective Last 24 Hour Vital Signs Date Time Temp Pulse Resp B/P (MAP) Pulse Ox O2 Delivery O2 Flow Rate FiO2 08/05/18 21:00 Nasal Cannula 2.0 08/05/18 16:00 97.5 60 18 128/70 (89) 98 08/05/18 15:25 97.9 63 18 115/64 (81) 98 08/05/18 14:15 Nasal Cannula 2.0 08/05/18 14:15 97.8 08/05/18 14:06 97.8 66 17 120/64 100 Nasal Cannula 3 08/05/18 14:00 70 18 121/65 100 Nasal Cannula 3 08/05/18 13:46 76 16 119/74 100 Nasal Cannula 3 08/05/18 13:30 64 14 127/73 100 Nasal Cannula 3 08/05/18 13:20 66 13 132/77 100 Simple Mask 6 08/05/18 13:13 73 17 123/72 99 Simple Mask 6 08/05/18 13:08 80 20 133/83 99 Simple Mask 6 08/05/18 13:03 97.5 72 12 140/84 99 Simple Mask 6 08/05/18 13:02 71 16 100 Intake and Output 08/05/18 08/06/18 19:00 07:00 Intake Total 2055 ml Output Total 700 ml Balance 1355 ml Intake Oral 300 ml IV Total 1755 ml Output Urine Total 450 ml Estimated Blood Loss 250 ml Height (Feet): 5 Height (Inches): 7.00 Weight (Pounds): 190 Objective WDWN NAD clear breath sounds bilaterally without rhonchi or wheeze [id number] without MRG NABS nontender no HSM no CCE nonfocal Nolberto Gaffney MD Aug 06, 2018 08:18
[2018-08-06] MEDS: Docusate 100mg cap ORAL SCH ×2 (09:06→17:24)
[2018-08-06] MEDS: HYDROcodone/Acetamin 7.5/325 tab ORAL PRN ×3 (09:19→17:24)
[2018-08-06 12:28] VITALS: BP 128/76
--- NOTE | 2018-08-06 12:28 | 48 Hour Post Anesthesia Eval ---
Post Anesthesia Evaluation Procedure: ALIF L4-5, PSF L4-5 Date of Evaluation: Aug 06, 2018 Time of Evaluation: 12:26 Blood Pressure Systolic: 128 0: 76 Pulse Rate: 62 Respiratory Rate: 20 Temperature (Fahrenheit): 97.6 O2 Sat by Pulse Oximetry: 98 Airway: patent Nausea: No Vomiting: No Pain Intensity: 3 Hydration Status: adequate Cardiopulmonary Status: stable Mental Status/LOC: patient returned to baseline Follow-up Care/Observations: n/a Post-Anesthesia Complications: none Follow-up care needed: N/A Dae Broussard MD Aug 06, 2018 12:28
--- NOTE | 2018-08-06 17:45 | NUR ---
NURSE NOTES: Received order for discharge. discharge instructions and belongings list given to patient. IV removed prior to d/c. also given RX for [place] 10/325 Q4H PRN#30, pt stated that he will go to his regular pharmacy to fill up prescription. daughter at bedside and she will provide transportation. I will f/u as needed.
--- NOTE | 2018-08-06 20:00 | Discharge Summary ---
DATE OF ADMISSION: 08/05/2018 DATE OF DISCHARGE: 08/06/2018 PROCEDURE PERFORMED DURING ADMISSION: Anterior and posterior lumbar fusion at L4-L5. REASON FOR ADMISSION: L4-L5 herniation, L4-L5 prior surgery in 2008, now with low back pain and radiculopathy. DISCHARGE PHYSICAL EXAMINATION: 1. The patient was ambulating with and without the assistance of physical therapy. 2. Prior to discharge home, incision was clean and dry with minimal swelling. 3. Follows commands. 4. Alert and oriented. 5. Yip discontinued, voiding. 6. Incentive spirometer at bedside. 7. IVF hep-locked. MOTOR: Demonstrates expected postoperative bulk and tone. Moves biceps, triceps, and deltoid musculature on command. Moves hip flexors, quadriceps, tibialis anterior, EHL, gastrocsoleus musculature on command as well. TREATMENT RENDERED: 1. Daily nursing care. 2. Physical therapy. 3. Occupational therapy. 4. Intravenous medications. 5. Oral medications. 6. Daily postoperative examinations by Spine Surgery team. CONDITION OF PATIENT ON DISCHARGE: The condition on discharge is stable for discharge to home. DISCHARGE INSTRUCTIONS: Our specific instructions relating to physical activity, medications, diet, and follow-up care are detailed in our standard operative folder and were given to this patient prior to surgery. We will however summarize these briefly as stated below. Regarding physical activity, we would like the patient to limit their flexion, extension, and rotation. We also require a limitation on their bending, lifting, and twisting. All medication has been called in prior to surgery to their pharmacy of choice. They can resume their regular diet once tolerated. We would like them to shower and limit soaking the wound in a tub/Jacuzzi/the ocean for a period of one month or until the incision is completely healed. We will have them follow up in our office in three weeks' time for their regularly scheduled appointment. They understand to call our office tomorrow to schedule the time for their three-week followup appointment. The patient will notify us should they experience any increase in the severity of pain, redness/swelling or drainage from their incision. Marcos Hahn M.D. DR: Susu JOB#: [id number] CC:
== END 2018-08-06 18:40 | disposition home or self-care (01) | DRG 455 ==
LOC: SDSOVERFLO 05:13 → 3E 13:47
PROC: 0SG00A0 Fusion of Lumbar Vertebral Joint with Interbody Fusion Device, Anterior Approach, Anterior Column, Open Approach (ICD-10-PCS; principal; 2018-08-05 07:00)
PROC: 0ST20ZZ Resection of Lumbar Vertebral Disc, Open Approach (ICD-10-PCS; principal; 2018-08-05 07:00)
PROC: 0SG00J1 Fusion of Lumbar Vertebral Joint with Synthetic Substitute, Posterior Approach, Posterior Column, Open Approach (ICD-10-PCS; principal; 2018-08-05 07:00)
PROC: 3E0U0GB Introduction of Recombinant Bone Morphogenetic Protein into Joints, Open Approach (ICD-10-PCS; principal; 2018-08-05 07:00)
PROC: 4A11X4G Monitoring of Peripheral Nervous Electrical Activity, Intraoperative, External Approach (ICD-10-PCS; principal; 2018-08-05 07:00)
DX: M51.16 Intervertebral disc disorders with radiculopathy, lumbar region (principal); M48.061 Spinal stenosis, lumbar region without neurogenic claudication; Z98.1 Arthrodesis status
CPT/HCPCS: 36415; 72020; 76000; 86850; 86900; 86901; 87081; J2405; J2710